=== PATIENT | male | born 2000 | race Caucasian/White ===

== ENCOUNTER 2020-05-29 13:12 | Emergency (ER) | payer OTHER ==
[2020-05-29 13:26] VITALS: TEMP 99.2
--- NOTE | 2020-05-29 13:52 | ED ---
General Adult HPI - General Chief complaint: Upper Respiratory Infection Stated complaint: SOB,cough Covid + Time Seen by Provider: 05/29/20 13:25 Source: patient, family, RN notes reviewed, old records reviewed Mode of arrival: ambulatory Limitations: no limitations - History of Present Illness Initial comments: This is a 19-year-old male who presents to the emergency department stating he was positive for COVID 90s ago he started feeling worse today. Patient states he feels short of breath and he still coughing. Patient denies any diarrhea. Patient states he has lost his taste and smell but they are returning slowly. Patient denies any chest pain or palpitations. Patient denies abdominal pain. Patient denies any nausea vomiting. Patient denies any swelling to the legs or calf tenderness. - Related Data Home Medications Medication Instructions Recorded Confirmed ARIPiprazole [Aripiprazole] 20 mg PO DAILY 10/11/14 10/11/14 Dexmethylphenidate HCl 60 mg PO DAILY 10/11/14 10/11/14 [Dexmethylphenidate HCl ER] QUEtiapine [SEROquel] 50 mg PO HS 10/11/14 10/11/14 Sertraline [Zoloft] 25 mg PO DAILY 10/11/14 10/11/14 Allergies Allergy/AdvReac Type Severity Reaction Status Date / Time latex Allergy Unknown Verified 05/29/20 13:23 Review of Systems ROS Statement: Those systems with pertinent positive or pertinent negative responses have been documented in the HPI. ROS Other: All systems not noted in ROS Statement are negative. Past Medical History Additional Past Medical History / Comment(s): autism History of Any Multi-Drug Resistant Organisms: None Reported Past Surgical History: No Surgical Hx Reported Past Psychological History: Depression Smoking Status: Never smoker Past Alcohol Use History: None Reported Past Drug Use History: None Reported General Exam - General Exam Comments Initial Comments: GENERAL: Patient is well-developed and well-nourished. Patient is nontoxic and well- hydrated and is in mild distress. ENT: Neck is soft and supple. No significant lymphadenopathy is noted. Oropharynx is clear. Moist mucous membranes. Neck has full range of motion without eliciting any pain. EYES: The sclera were anicteric and conjunctiva were pink and moist. Extraocular movements were intact and pupils were equal round and reactive to light. Eyelids were unremarkable. PULMONARY: Unlabored respirations. Good breath sounds bilaterally. No audible rales rhonchi or wheezing was noted. CARDIOVASCULAR: There is a regular rate and rhythm without any murmurs gallops or rubs. ABDOMEN: Soft and nontender with normal bowel sounds. SKIN: Skin is clear with no lesions or rashes and otherwise unremarkable. NEUROLOGIC: Patient is alert and oriented x3. Cranial nerves II through XII are grossly intact. Motor and sensory are also intact. Normal speech, volume and content. Symmetrical smile. MUSCULOSKELETAL: Normal extremities with adequate strength and full range of motion. LYMPHATICS: No significant lymphadenopathy is noted PSYCHIATRIC: Normal psychiatric evaluation. Limitations: no limitations Course Vital Signs 05/29/20 13:23 Temperature 99.2 F Pulse Rate 95 Respiratory 18 Rate Blood Pressure 120/81 O2 Sat by Pulse 97 Oximetry Medical Decision Making - Medical Decision Making Chest x-ray shows bilateral lower lobe pneumonia. Disposition Clinical Impression: Pneumonia due to COVID-19 virus Disposition: HOME SELF-CARE Condition: Good Instructions (If sedation given, give patient instructions): Coronavirus Dis ease 2019 (COVID-19) Is patient prescribed a controlled substance at d/c from ED?: No Referrals: Drew Rincon MD [Primary Care Provider] - 1-2 days Time of Disposition: 14:34
--- NOTE | 2020-05-29 14:26 | XR ---
EXAMINATION TYPE: XR chest 1V portable DATE OF EXAM: 05/29/2020 Comparison: None Clinical History: 19-year-old male Short of breath Findings: The cardiomediastinal silhouette, aorta, and pulmonary vasculature are within normal limits. Patchy mid and lower lung opacity on the left and patchy opacity at the right base. No pleural effusion. IMPRESSION: Patchy mid and lower lung infiltrates, left greater than right, in keeping with COVID pneumonia.
[2020-05-29 14:51] VITALS: BP 136/76; PULSE 78; RESP 16
== END 2020-05-29 14:49 | disposition home or self-care (01) ==
LOC: EC 13:12
DX: U07.1 COVID-19 (principal); J12.82 Pneumonia due to coronavirus disease 2019; F32.9 Major depressive disorder, single episode, unspecified; F84.0 Autistic disorder
CPT/HCPCS: 71045; 99284